=== PATIENT | female | born 1965 | race Caucasian/White ===

== ENCOUNTER 2021-07-17 05:51 | Outpatient (CLI) | payer BC, OTHER ==
[~2021-07-17] VITALS: Ht 160 cm; Wt 68.5 kg
[2021-07-17] MEDS ORDERED: DICL1KIT14 TP (13:42)
[2021-07-17] MEDS ORDERED: MONT10TA21 PO (13:43)
[2021-07-17] MEDS ORDERED: POLY17PO6 PO (13:43)
== END 2021-07-17 14:53 | disposition home or self-care (01) ==
LOC: PREOP 05:51
PROVIDERS: ATTEND Surgery
DX: Z01.818 Encounter for other preprocedural examination (principal)

== ENCOUNTER 2021-07-24 09:33 | Day surgery (SDC) | payer BC ==
[~2021-07-24] VITALS: Ht 160 cm; Wt 68.5 kg
[2021-07-24] VITALS (12 sets, daily range): BP systolic 91–114; BP diastolic 53–81
[~2021-07-24 09:33] MED LIST: DICL1KIT14 TP; MONT10TA21 PO; POLY17PO6 PO
--- OUTSIDE RECORDS SUMMARY | 2021-07-24 09:37 | XMS REPORT | Clinical Summary ---
Author Author [facility] Organization [facility] Address Unknown Phone Unavailable Care Team Providers Care Line Mover Name Role Phone Self, Koko LIM PCP Lynette Hicks Unavailable Unavailable Lesley Montaño MD Unavailable Magy Obrien APRN-PARTS ASSEMBLER Unavailable Source Comments Some departments are not documenting in the electronic medical record. If you d o not see the information that you expected, contact Release of Information in [facility] Information Management department at [phone] for further assistan ce in locating additional records.[facility] Allergies No known active allergies Medications End Date Status Medication Sig Dispensed Refills Start Date Active loratadine (CLARITIN) 10 Take 10 mg by 0 mg tablet mouth daily. Active montelukast (SINGULAIR) Take 10 mg by 0 10 mg tablet mouth at bedtime daily. Active polyethylene glycol 3350 Take 17 g by 0 (GLYCOLAX; MIRALAX) 17 mouth daily. gram/dose powder Active senna (SENNA) 8.6 mg Take 1 Tab by 0 tablet mouth daily as needed. Active estradiol (ESTRACE) 0.5 Take 0.5 mg 0 mg tablet by mouth 2 daily. Active CALCIUM PO Take 1,200 mg 0 by mouth 5 daily. Active cholecalciferol (VITAMIN Take 0 07/01 D-3) 1,000 units tablet 1,000-5,000 5 Units by mouth daily. Active diphenhydrAMINE Take 25 mg by 0 (BENADRYL) 25 mg capsule mouth at bedtime as needed. Active Problems Problem Noted Date Encounter for screening mammogram for high-risk patie nt 03/24/2016 Family history of breast cancer in sister 01/22/2016 Postmenopausal hormone replacement therapy 6 BMI 28.0-28.9,adult 01/22/2016 Postop check 02/28/2013 Overview: Formatting of this note might be differ ent from the original. 02/21/13 Foot pain 02/21/2013 Foot pain, left 11/22/2012 Fracture of foot with nonunion 11/22/2012 Overview: Formatting of this note might be differ ent from the original. 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) Surgical History Surgery Date Site/Laterality Comments ABHILASH AND BSO 07/2007 FOOT SURGERY 07/2006 Rt; moulded inserts TUBAL LIGATION 1992 OTHER SURGICAL HISTORY 10/2008 A & P repair Medical History Medical History Date Comments Planovalgus deformity of foot asymmetric Posterior tibial tendinitis with Rt foot /ankle mikey n & evidence of tendon dysfunction and insufficiency Family History Medical History Relation Name Comments Heart Attack Father Heart Disease Father Heart Attack Mother Heart Disease Mother Hypertension Mother Cancer-Breast Sister Arthritis-osteo Relation Name Status Comments Father Mother Sister Social History Date Tobacco Use Types Packs/Day Years Used Never Smoker Smokeless Tobacco: Never Used Comments Alcohol Use Standard Drinks/Week <1/month Yes 0 (1 standard drink = 0.6 o z pure alcohol) Alcohol Habits Answer Date Recorded How often do you have a drink containing alcohol? No t asked How many drinks containing alcohol do you have on No t asked a typical day when you are drinking? How often do you have six or more drinks on one Not asked occasion? Comment: <1/month 01/22/2016 Sex Assigned at Date Recorded Not on file Last Filed Vital Signs Reading Time Taken Comments Vital Sign 112/78 03/24/2016 10:24 AM CDT Blood Pressure 68 03/24/2016 10:24 AM CDT Pulse 36.7 C (98 F) 03/24/2016 10:24 AM CDT Temperature 16 03/24/2016 10:24 AM CDT Respiratory Rate 93% 02/22/2013 11:14 AM CDT Oxygen Saturation - - Inhaled Oxygen Concentration 71.9 kg (158 lb 9.6 oz) 03/24/2016 10:24 AM CDT Weight 160 cm (5' 3") 03/24/2016 10:24 AM CDT Height 28.09 03/24/2016 10:24 AM CDT Body Mass Index Plan of Treatment Health Maintenance Due Date Last Done Comments HIV SCREENING 1978 DTAP/TDAP VACCINES (1 - 1981 Tdap) HEPATITIS C SCREENING 1981 PHYSICAL (COMPREHENSIVE) 1981 EXAM CERVICAL CANCER SCREENING 1984 BREAST CANCER SCREENING 2003 COLORECTAL CANCER 2013 SCREENING SHINGLES RECOMBINANT 2013 VACCINE (1 of 2) INFLUENZA VACCINE 03/31/2021 Results Not on filefrom Last 3 Months Insurance Type Payer Benefit Subscriber ID Effective Phone Address Plan / Dates Group PPO BCBS [employer] BCBS [employer] [id number] 2015- [phone] [address] EMP Present [id number] [place] [id number] Advance Directives Patient Superintendent [employer] Explanation Type Date Recorded Advance 05/17/2013 2:57 AM Directive/DPOA Date Inactivated Comments Code Status Date Activated 02/21/2013 3:47 PM Full Code 02/21/2013 1:34 PM Provider has discussed Code Status No, discussion no t w/Patient or Family? necessary based on Dx Care Teams Start Date End Date Line Mover Relationship Specialty 02/16/13 Koko Dubon MD PCP - General [address] [place] [id number] 01/21/16 Lynette Hicks 01/22/16 Lesley Montaño MD Hematology & [address] [facility] [place] [address] 03/24/16 Magy Obrien, BI TRI OPERATOR-PARTS ASSEMBLER Internal [address] [facility] [place] [address]
[2021-07-24] MEDS ORDERED: NS IV 500 ML 500 ML ONE (09:41)
[2021-07-24] MEDS ORDERED: MIDAZOLAM 5 MG/5 ML (VERSED) VIAL IV ONE (10:00)
[2021-07-24] MEDS ORDERED: NS IV 500 ML 500 ML IV PRN (10:00)
[2021-07-24] MEDS ORDERED: fentaNYL INJ 100 MCG/2 ML AMP IVP ONE (10:00)
--- NOTE | 2021-07-24 10:12 | Conscious Sedation/ASA ---
Conscious Sedation Pre-Proced Time 10:00 ASA Score 2 For ASA 3 and 4: Consider anesthesia and medical clearance. Also, for patients with a history of failed moderate sedation consider anesthesia. Airway Lungs Heart ASA score ASA 1: a normal healthy patient ASA 2: a patient with a mild systemic disease (mid diabetes, controlled hypertension, obesity ASA 3: a patient with a severe systemic disease that limits activity (angina, COPD, prior Myocardial infarction) ASA 4: a patient with an incapacitating disease that is a constant threat to life (CHF, renal failure) ASA 5: a moribund patient not expected to survive 24 hrs. (ruptured aneurysm) ASA 6: a declared brain- patient whose organs are being harvested. For emergent operations, add the letter E after the classification Mallampati Classification Grade 2 Sedation Plan Analgesia, Amnesia, Plan communicated to team members, Discussed options with patient/fam, Discussed risks with patient/fam The patient is an appropriate candidate to undergo the planned procedure, sedation, and anesthesia. The patient immediately re-assessed prior to indication. TREVON LEWIS MD Jul 24, 2021 10:12
--- NOTE | 2021-07-24 10:12 | Progress Note-Pre Operative ---
Pre-Operative Progress Note H&P Reviewed The H&P was reviewed, patient examined and no changes noted. Date Seen by Provider: Jul 24, 2021 Time Seen by Provider: 10:00 Date H&P Reviewed: Jul 24, 2021 Time H&P Reviewed: 10:00 Pre-Operative Diagnosis: heme +, screening colo TREVON LEWIS MD Jul 24, 2021 10:12
--- NOTE | 2021-07-24 10:14 | Discharge Inst-Surgical ---
D/C Lap Instructions-DEBBIE Follow Up Activity as tolerated High Fiber Diet 25g or more per day Avoid Alcohol, Caffeine, Spicy [place] and Acid foods. Drink 64 fluid oz or more of fluids per day. Symptoms to Report: Fever over 101 degree F, Nausea/Vomiting If any problems/questions: Contact your physician or go to Emergency Room TREVON LEWIS MD Jul 24, 2021 10:14
[2021-07-24] MEDS ORDERED: ONDANSETRON 4 MG (ZOFRAN) ORAL DISSOLVE TAB PO PRN (10:15)
[2021-07-24] MEDS ORDERED: ONDANSETRON 4 MG/2 ML (SDV) Z0FRAN IVP PRN (10:15)
[2021-07-24] MEDS ORDERED: LIDOCAINE JELLY 2% 6 ML SYRINGE ONE (10:58)
--- NOTE | 2021-07-24 11:28 | Progress Note-Post Operative ---
Post-Operative Progess Note Surgeon (s)/Handyperson (s) Surgeon TREVON LEWIS MD Handyperson: none Pre-Operative Diagnosis cologaurd +, screening colo Post-Operative Diagnosis chronic stage 2 ext and int hemorrhoids, diffuse melanosis coli, colitis splenic flex and descending colon. Procedure & Operative Findings Date of Procedure 07/24/21 Procedure Performed/Findings colonoscopy with bx. Anesthesia Type cs Estimated Blood Loss Estimated blood loss (mL): minimal Specimens/Packing Specimens Removed splenic flex TREVON LEWIS MD Jul 24, 2021 11:28
--- NOTE | 2021-07-24 17:20 | OPERATIVE REPORT ---
DATE OF SERVICE: 07/24/2021 ATTENDING PRIMARY CARE PHYSICIAN: Dr. Koko Dubon. PREOPERATIVE DIAGNOSIS: Cologuard positive stool with family history of colon cancer. POSTOPERATIVE DIAGNOSES: Chronic stage II external and internal hemorrhoids, melanosis coli, colitis encompassing the splenic flexure and part of the descending colon. PROCEDURES PERFORMED: Colonoscopy with biopsy. SURGEON: Trevon Lewis MD. ANESTHESIA: Conscious sedation. ESTIMATED BLOOD LOSS: Minimal. FINDINGS: Chronic stage II external and internal hemorrhoids, melanosis coli, colitis encompassing the splenic flexure and part of the descending colon. DISPOSITION: The patient tolerated the procedure well. INDICATIONS FOR PROCEDURE: The patient is a 56-year-old female, who was seen by her physician recently and underwent a Cologuard test, which did come back positive. She does report that she has had some loose stools as well in the past. She does not report any kylah episodes of red blood per rectum nor any dark tarry stools. She does have a family history of colon cancer with her mother as well as two aunts having the disease. DESCRIPTION OF PROCEDURE: The patient was brought to the endoscopy suite and laid in the left lateral decubitus position. After adequate IV pain and sedative medications and conscious sedation anesthesia, a digital rectal examination was performed, stage II chronic external and internal hemorrhoids were identified, which were not actively edematous nor inflamed nor any bleeding. Normal sphincter tone was felt and there were no palpable masses. The endoscope was then intubated into the anus and the rectum gently insufflated. There was a significant mucosal pigmentation consistent with melanosis coli, likely due to chronic laxative use. This did extend throughout the entirety of the colon as well. The endoscope was then advanced to the valves of Mason of the rectum with no polyps or any neoplasms identified. Through the sigmoid colon, no diverticulosis identified. Mild to moderate colitis was identified through the descending colon and at the splenic flexure. Biopsies were taken of the splenic flexure with forceps with visualization of good hemostasis. Endoscope was then advanced through the transverse colon as well as the ascending colon to the cecum and again melanosis coli identified; however, no polyps or any neoplasms. The endoscope was then slowly withdrawn while taking a second look and suctioning of residual air with no additional findings. The patient tolerated the procedure well. We will await the biopsy results; however, have her continue with medical management and have her incorporate a high-fiber diet with a fiber supplement, which should equal or exceed 25 grams daily as well as significant amounts of water to promote soft stools on a daily basis and to wean off taking all forms of stool softeners as well as laxatives. If she does have worsening symptoms of potential colitis, we will refer her to gastroenterology for further medical management. Due to her first-degree family history of colon cancer, we will also recommend a followup colonoscopy in five years. Job ID: [id number] DocumentID: [id number] Dictated Date: 07/24/2021 11:25:00 Human Resource Officer Date: 07/24/2021 17:20:00 Dictated By: TREVON LEWIS MD
== END 2021-07-24 12:05 | disposition home or self-care (01) ==
LOC: ENDO 09:33
PROVIDERS: ATTEND Surgery
DX: K52.9 Noninfective gastroenteritis and colitis, unspecified (principal); R19.5 Other fecal abnormalities; K64.1 Second degree hemorrhoids; K64.4 Residual hemorrhoidal skin tags; K59.09 Other constipation; Z90.710 Acquired absence of both cervix and uterus; Z79.899 Other long term (current) drug therapy; Z82.49 Family history of ischemic heart disease and other diseases of the circulatory system; Z80.0 Family history of malignant neoplasm of digestive organs; Z80.3 Family history of malignant neoplasm of breast
CPT/HCPCS: 88305